=== PATIENT | male | born 1990 | race Caucasian/White ===

== ENCOUNTER 2017-04-18 09:36 | Emergency (ER) | payer SELFPAY ==
[2017-04-18 09:49] VITALS: BP 124/88
[2017-04-18] MEDS ORDERED: Ketorolac 60 MG/2 ML SDV IM ONE (09:49)
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
== END 2017-04-18 10:12 | disposition home or self-care (01) ==
LOC: JD.ED 09:36
DX: S00.83XA Contusion of other part of head, initial encounter (principal); S00.93XA Contusion of unspecified part of head, initial encounter; S00.91XA Abrasion of unspecified part of head, initial encounter; M25.511 Pain in right shoulder; G89.29 Other chronic pain; Z87.891 Personal history of nicotine dependence; Z91.048 Other nonmedicinal substance allergy status; Z91.09 Other allergy status, other than to drugs and biological substances; Y04.0XXA Assault by unarmed brawl or fight, initial encounter
CPT/HCPCS: 96372; 99283; J1885

== ENCOUNTER 2017-09-24 06:47 | Emergency (ER) | payer SELFPAY ==
[2017-09-24 07:09] VITALS: BP 179/101
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
== END 2017-09-24 07:48 | disposition home or self-care (01) ==
LOC: JD.ED 06:47
DX: Z02.89 Encounter for other administrative examinations (principal)
CPT/HCPCS: 99283

== ENCOUNTER 2019-01-08 06:21 | Emergency (ER) | payer SELFPAY ==
[2019-01-08 06:28] VITALS: BP 158/117; PULSE 67
[2019-01-08] MEDS ORDERED: Lidocaine 1% 10 ML MDV INJECT ONE (07:09)
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
== END 2019-01-08 07:40 ==
LOC: JD.ED 06:21
DX: S41.111A Laceration without foreign body of right upper arm, initial encounter (principal); Z91.048 Other nonmedicinal substance allergy status; Z88.8 Allergy status to other drugs, medicaments and biological substances; W25.XXXA Contact with sharp glass, initial encounter
CPT/HCPCS: 99283; J2001

== ENCOUNTER 2021-05-25 05:28 | Emergency (ER) | payer SELFPAY ==
[2021-05-25] MEDS: OLANZapine 10 MG Vial IM ONE (05:30)
[2021-05-25] MEDS: LORazepam 2 MG/ML SDV IM ONE (05:30)
[2021-05-25 05:50] VITALS: BP 160/103
[2021-05-25 07:05] LABS: ACETAMINOPHEN 0 ug/mL (10-30)
[2021-05-25 08:31] VITALS: PULSE 68
== END 2021-05-25 13:20 | disposition home or self-care (01) ==
LOC: JD.ED 05:28
DX: F23 Brief psychotic disorder (principal); F17.210 Nicotine dependence, cigarettes, uncomplicated; Z88.8 Allergy status to other drugs, medicaments and biological substances; Z91.048 Other nonmedicinal substance allergy status
CPT/HCPCS: 36415; 80053; 80143; 80179; 80307; 84443; 85025; 96372; 99284; 99285; J2060; J3490

== ENCOUNTER 2021-11-02 13:40 | Emergency (ER) | payer MEDICAID ==
[2021-11-02 13:51] VITALS: BP 129/90; PULSE 68
== END 2021-11-02 14:28 | disposition other institution (70) ==
LOC: JD.ED 13:40
DX: Z02.89 Encounter for other administrative examinations (principal); Z91.048 Other nonmedicinal substance allergy status; Z88.8 Allergy status to other drugs, medicaments and biological substances
CPT/HCPCS: 99282; 99283

== ENCOUNTER 2021-11-15 10:50 | Emergency (ER) | payer MEDICAID ==
[2021-11-15] MEDS ORDERED: Midazolam 5 MG/ML 10 ML MDV ONE (10:51)
[2021-11-15] MEDS ORDERED: OLANZapine 10 MG Vial IM ONE (10:52)
[2021-11-15] MEDS ORDERED: Sodium Chloride 0.9% 1,000 ML IV ONE (11:10)
[2021-12-13 19:49] LABS: ESTIMATED GFR 50 mL/min (>60)
== END 2021-11-15 16:00 ==
LOC: JD.ED 10:50
DX: T24.121A Burn of first degree of right knee, initial encounter (principal); T24.122A Burn of first degree of left knee, initial encounter; S90.511A Abrasion, right ankle, initial encounter; S90.512A Abrasion, left ankle, initial encounter; S90.811A Abrasion, right foot, initial encounter; S90.812A Abrasion, left foot, initial encounter
CPT/HCPCS: 36415; 80053; 80306; 80307; 81003; 83735; 85025; 96360; 96361; 96372; 99283; J2250; J3490; J7030